=== PATIENT | female | born 1950 | race Caucasian/White ===

== ENCOUNTER → 2017-03-12 | Outpatient (CLI) | payer MEDICARE ==
--- NOTE | 2017-03-12 16:38 | PCVCIMAG ---
APPROVED REPORT Study performed: 03/12/2017 14:40:55 EXAM: Comprehensive 2D, Doppler, and color-flow Echocardiogram Status: routine Other Information Study Quality: Adequate Risk Factors: Cardiac Risk Factors: HTN Indications Pulmonary Hypertension Chest Pain 2D Dimensions LVEF(%): 50.50 (>50%) IVSd: 8.19 (7-11mm) LVDd: 42.21 mm PWd: 7.74 (7-11mm) LVDs: 31.48 (25-40mm) Left Atrium: 30.96 (27-40mm) Aortic Root: 25.38 mm LV Single Plane 4CH: 63.45 % LV Single Plane 2CH: 55.56 %Solorzano's LVEF: 59.51 % Biplane EF: 59.9 % Volumes Left Atrial Volume (Systole) Single Plane 4CH: 25.00 mLSingle Plane 2CH: 24.97 mL LA ESV Index: 16.00 mL/m2 Aortic Valve AoV Peak Mando.: 1.47 m/s AO Peak Gr.: 8.70 mmHgLVOT Max P.57 mmHg LVOT Max V: 1.07 m/s Mitral Valve E/A Ratio: 0.7 MV Decel. Time: 244.36 ms MV E Max Mando.: 0.65 m/s MV A Mando.: 0.89 m/s MV PHT: 70.87 ms IVRT: 100.35 ms TDI E/Lateral E': 9.20E/Medial E': 13.50 Pulmonary Valve PV Peak Mando.: 0.84 m/sPV Peak Gr.: 2.80 mmHg Pulmonary Vein P Vein S: 0.41 m/sP Vein A: 0.59 m/s P Vein D: 0.62 m/sP Vein A Dur.: 121.1 msec P Vein S/D Ratio: 0.66 Tricuspid Valve TR Peak Mando.: 2.82 m/s TR Peak Gr.: 31.78 mmHg Left Ventricle The left ventricle is normal size. There is normal LV segmental wall motion. There is normal left ventricular wall thickness. Left ventricular systolic function is normal. The left ventricular ejection fraction is within the normal range. LVEF is 55-60%. Grade I - abnormal relaxation pattern. Right Ventricle The right ventricle is normal size. The right ventricular systolic function is normal. Atria The left atrium size is normal. The right atrium size is normal. Aortic Valve The aortic valve is trileaflet, minimally sclerotic No aortic regurgitation is present. There is no aortic valvular stenosis. Mitral Valve The mitral valve is normal in structure. There is no mitral valve regurgitation noted. No evidence of mitral valve stenosis. Tricuspid Valve The tricuspid valve is normal in structure. Mild tricuspid regurgitation with PAP of 40 mmHg. Pulmonic Valve The pulmonary valve is normal in structure. There is no pulmonic valvular regurgitation. Great Vessels The aortic root is normal in size. IVC is normal in size and collapses with >50% inspiration Pericardium There is no pericardial effusion. <Conclusion> Left ventricular systolic function is normal. There is normal LV segmental wall motion. LVEF 55-60%. Grade I - abnormal relaxation pattern. The aortic valve is trileaflet, minimally sclerotic. No aortic valvular insufficiency or stenosis. The mitral valve is normal in structure. No evidence of mitral valve stenosis. Mild tricuspid regurgitation with pulmonary artery pressure of 35 mmHg. There is no pericardial effusion.
== END | disposition home or self-care (01) ==
LOC: PCVCIMAG 14:54
PROVIDERS: ATTEND Internal Medicine Cardiovascular Disease
DX: I27.2 Other secondary pulmonary hypertension (principal); I07.1 Rheumatic tricuspid insufficiency; I35.8 Other nonrheumatic aortic valve disorders
CPT/HCPCS: 93306

== ENCOUNTER → 2017-09-24 | Outpatient (CLI) | payer MEDICARE | END | disposition home or self-care (01) | LOC: PCVCIMAG 14:43 | DX: I08.1 Rheumatic disorders of both mitral and tricuspid valves (principal); I27.20 Pulmonary hypertension, unspecified; Z86.711 Personal history of pulmonary embolism | CPT/HCPCS: 93306 ==

== ENCOUNTER → 2018-01-29 | Outpatient (CLI) | payer MEDICARE | END | disposition home or self-care (01) | LOC: PCVCIMAG 14:10 | DX: I25.10 Atherosclerotic heart disease of native coronary artery without angina pectoris (principal); E78.5 Hyperlipidemia, unspecified; I10 Essential (primary) hypertension; M32.9 Systemic lupus erythematosus, unspecified; C43.9 Malignant melanoma of skin, unspecified; I26.99 Other pulmonary embolism without acute cor pulmonale; Z86.711 Personal history of pulmonary embolism; Z79.01 Long term (current) use of anticoagulants; Z87.891 Personal history of nicotine dependence; Z79.899 Other long term (current) drug therapy; Z88.0 Allergy status to penicillin | CPT/HCPCS: 80061; 93005; 93306; G0463 ==

== ENCOUNTER → 2019-01-08 | Outpatient (CLI) | payer MEDICARE ==
--- NOTE | 2019-01-08 13:03 | PCVCIMAG ---
APPROVED REPORT Study performed: 01/08/2019 09:49:56 EXAM: Comprehensive 2D, Doppler, and color-flow Echocardiogram Patient Location: Echo lab Status: routine BSA: 1.72 HR: 82 bpmBP: 150/92 mmHg Rhythm: NSR Other Information Study Quality: Adequate Risk Factors: Cardiac Risk Factors: HTN Indications Pre-Op hx of pulmonary embolism 2D Dimensions IVSd: 8.68 (7-11mm) LVDd: 41.64 mm PWd: 8.40 (7-11mm)Ascending Ao: 28.08 (22-36mm) LVDs: 29.60 (25-40mm) Left Atrium: 35.54 (27-40mm) Aortic Root: 27.46 mm LV Single Plane 4CH: 50.55 % LV Single Plane 2CH: 60.63 % Biplane EF: 56.6 % Volumes Left Atrial Volume (Systole) Single Plane 4CH: 21.75 mLSingle Plane 2CH: 31.82 mL LA ESV Index: 25.00 mL/m2 Aortic Valve AoV Peak Mando.: 1.40 m/s AO Peak Gr.: 8.22 mmHgLVOT Max P.17 mmHg LVOT Max V: 1.02 m/s Mitral Valve E/A Ratio: 0.6 MV Decel. Time: 278.27 ms MV E Max Mando.: 0.62 m/s MV A Mando.: 1.11 m/s IVRT: 110.73 ms Pulmonary Valve PV Peak Mando.: 0.82 m/sPV Peak Gr.: 2.70 mmHg Pulmonary Vein P Vein S: 0.29 m/sP Vein A: 0.34 m/s P Vein D: 0.41 m/sP Vein A Dur.: 107.3 msec P Vein S/D Ratio: 0.71 Tricuspid Valve TR Peak Mando.: 2.66 m/s TR Peak Gr.: 28.26 mmHg TV Vmax: 0.53 m/s Left Ventricle The left ventricle is normal size. There is normal LV segmental wall motion. There is normal left ventricular wall thickness. Left ventricular systolic function is normal. The left ventricular ejection fraction is within the normal range. LVEF is 55-60%. Mild diastolic dysfunction is present (impaired relaxation pattern). Right Ventricle The right ventricle is normal size. The right ventricular systolic function is normal. Atria The left atrium size is normal. The right atrium size is normal. Aortic Valve The aortic valve is mildly sclerotic. No aortic regurgitation is present. There is no aortic valvular stenosis. Mitral Valve The mitral valve is normal in structure. There is no mitral valve regurgitation noted. No evidence of mitral valve stenosis. Tricuspid Valve The tricuspid valve is normal in structure. Mild tricuspid regurgitation with PAP of 30 mmHg. Pulmonic Valve The pulmonary valve is normal in structure. There is no pulmonic valvular regurgitation. Great Vessels The aortic root is normal in size. IVC is normal in size and collapses >50% with inspiration. Pericardium There is no pericardial effusion. There is no pleural effusion. <Conclusion> Left ventricular systolic function is normal. There is normal LV segmental wall motion. LVEF is 55-60%. Mild diastolic dysfunction The aortic valve is mildly sclerotic. No aortic regurgitation or stenosis. The mitral valve is normal in structure. No mitral valve regurgitation. Mild tricuspid regurgitation with pulmonary artery pressure of 30 mmHg. There is no pericardial effusion.
== END | disposition home or self-care (01) ==
LOC: PCVCIMAG 10:58
PROVIDERS: ATTEND Internal Medicine
DX: Z01.818 Encounter for other preprocedural examination (principal); I07.1 Rheumatic tricuspid insufficiency; I26.99 Other pulmonary embolism without acute cor pulmonale; Z88.8 Allergy status to other drugs, medicaments and biological substances; Z87.891 Personal history of nicotine dependence; Z88.0 Allergy status to penicillin
CPT/HCPCS: 93306